=== PATIENT | female | born 1975 | race Caucasian/White ===

== ENCOUNTER 2016-08-04 13:29 | Emergency (ER) | payer OTHER ==
[2016-08-04] VITALS (9 sets, daily range): BP systolic 129–160; BP diastolic 52–111; PULSE 102–175; RESP 17–32; O2SAT 95–100
[~2016-08-04 13:29] MED LIST: ASPI-973 PO; AZEL137S11 NS; BENZ-12 PO; CYCL10TA9 PO; DIVA500T14 PO; EPIN0.3P2 IJ; ERGO500050 PO; FLUT9.9S NS; GABA-500 PO; HYDR25CA PO; IMI100 PO; KLO5T PO; LANS30CA PO; LEVA15HF5 IH; LEVO750T9 PO; LEVO75TA4 PO; MAGN250T29 PO; MOME13HF IH; MONT10TA23 PO; PROC10TA PO; PYRI200T5 PO; UBID300C PO; VERA120T84 PO; VERA40TA2 PO
[2016-08-04] MEDS ORDERED: MethylprednisoLONE Sodium Succinate 62.5 mg/mL 2 mL Inj IVPUSH ONE (13:35)
[2016-08-04] MEDS ORDERED: Albuterol 2.5 mg/3 mL Inhalation Solution NEB ONE (13:35)
--- NOTE | 2016-08-04 13:36 | ED.REPORT ---
HPI-Allergic Reaction Date of Service Aug 04, 2016 ED Provider: Car Ceja MD This is a 41 year old female with a history of anaphylaxis and allergic asthma presenting to the emergency department complaining of difficulty breathing that began just prior to arrival. Patient used her friend's lotion and then developed shortness of breath. SOB is progressively worsening and is associated with throat swelling and diffuse erythema. Nursing Notes Stated Complaint: TROUBLE BREATHING Nursing Notes Reviewed: Yes Allergies: Coded Allergies: Penicillins (Verified Allergy, Severe, Anaphylaxis, 12/08/15) amoxicillin (Verified Allergy, Severe, Anaphylaxis, 12/08/15) avocado (Verified Allergy, Severe, mouth swellls, hives on roof of mouth, 12/08/15) banana (Verified Allergy, Severe, hives, mouth swells, 12/08/15) clarithromycin (Verified Allergy, Severe, 12/08/15) diphenhydramine HCl (Verified Allergy, Severe, AV HEART BLOCK, 12/08/15) erythromycin ethylsuccinate (Verified Allergy, Severe, hives, SOB, throat swelling, 12/08/15) influenza virus vaccine, specific (Verified Allergy, Severe, supraventicular tachycardia, rash, throat swelling, 12/08/15) chest pressure iodine (Verified Allergy, Severe, Anaphylaxis, 12/08/15) topical-rash. dye-anaphylaxis latex (Verified Allergy, Severe, 12/08/15) morphine (Verified Allergy, Severe, 12/08/15) severe vomitting, hallucinations ondansetron (Verified Allergy, Severe, 12/08/15) shellfish derived (Verified Allergy, Severe, Anaphylaxis, 12/08/15) [place] (Verified Allergy, Intermediate, Hives, mouth swells, 12/08/15) Roof of mouth breaks out. Kiwi (Unverified Allergy, Unknown, 12/08/15) rash and tongue swelling Miguel (Verified Allergy, Unknown, mouth swells, 12/08/15) Scheduled Aspirin (Aspirin) 81 Mg Tablet 162 MG PO HS Azelastine HCl (Azelastine HCl) 137 Mcg/0.137 Ml [place].pump 137 MCG NS DAILY Divalproex ER (Divalproex ER) 500 Mg Tab.er.24h 500 MG PO HS *DAILY DOSING ONLY* Swallowed whole without chewing to avoid local irritation of the mouth and throat. Ergocalciferol (Vitamin D2) (Drisdol) 50,000 Unit Capsule 100,000 UNIT PO Q7D Fluticasone Propionate (Flonase Allergy Relief) 50 Mcg/Actuation [place].susp 1 SPRAY NS DAILY Lansoprazole (Lansoprazole) 30 Mg Capsule.dr 30 MG PO BID Levofloxacin (Levaquin) 750 Mg Tablet 750 MG PO DAILYAC Levothyroxine (Levothyroxine) 75 Mcg Tablet 75 MCG PO DAILY Magnesium Oxide (Magnesium) 250 Mg Tablet 250 MG PO DAILY Mometasone/Formoterol (Dulera 200 Mcg/5 Mcg Inhaler) 13 Gm Hfa.aer.ad 2 PUFFS IH BID Montelukast (Montelukast) 10 Mg Tablet 10 MG PO DAILY Pyridoxine (Vitamin B-6) 200 Mg Tablet 300 MG PO DAILY Ubidecarenone (Co Q-10) 300 Mg Capsule 600 MG PO DAILY Verapamil (Verapamil) 40 Mg Tablet 20 MG PO DAILY Verapamil ER (Verapamil ER) 120 Mg Tablet.er 120 MG PO DAILY Scheduled PRN Benzonatate (Tessalon Perle) 100 Mg Capsule 200 MG PO TID PRN PRN For Cough Clonazepam (Clonazepam) 0.5 Mg Tablet 0.25 MG PO . PRN PRN For Shortness of Breath Cyclobenzaprine (Cyclobenzaprine) 10 Mg Tablet 10 MG PO TID PRN PRN Spasm Epinephrine (Epipen 2-Cody) 0.3 Mg/0.3 Ml Auto.injct 0.3 MG IJ PRN PRN PRN For Anaphyllaxis Gabapentin (Gabapentin) 100 Mg Capsule 100-300 MG PO Evening PRN PRN nerve pain Hydroxyzine Pamoate (Vistaril) 25 Mg Capsule 25 MG PO Q4-6H PRN PRN allergies Levalbuterol Tartrate (Xopenex Hfa) 15 Gm Hfa.aer.ad 2 PUFF IH Q8H PRN PRN For Shortness of Breath Prochlorperazine Maleate (Prochlorperazine) 10 Mg Tablet 10 MG PO Q8 PRN PRN For Nausea/Vomiting Sumatriptan (Imitrex) 100 Mg Tablet 100 MG PO DAILY PRN PRN migraine May take 50mg 6 hours after initial dose if not effective. General Time Seen by MD: 13:35 Chief Complaint Difficulty breathing Hx Obtained From: Patient Arrived By: Walk-in Onset Occurred: Just prior to arrival Symptom Duration: Since onset Severity: Current: No pain currently Pertinent Negative: Pt denies other symptoms Recent Healthcare: No recent doctor visit, No recent hospitalization Similar Sx Previous: No Past Medical History Past Medical History Asthma, severe allergic (usez Xopenex) Hypothyroidism. Thyroid and parathyroid adenoma. 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 Migraine headaches. GERD. History of SVT. History of anaphylaxis from flu shot. Anxiety Past Surgical History Thyroid surgery Arm surgery right oophrectomy (2008) Reports: Appendectomy, Cholecystectomy, Hysterectomy, Tonsillectomy Reports: Carpal tunnel Family History father-[place] Smoking History Never Smoker Social History Drug Use: Denies drug use Other Social History: Good social support, Local resident Occupation Works at [employer] Ambulatory Status Independent Review of Systems Constitutional: Denies: Chills, Fever Ears / Nose / Throat: Reports: Throat swelling, Voice change Respiratory: Reports: Shortness of breath, Denies: Non-productive cough Allergy / Immune: Reports: Allergic reaction Complete sys rev & neg: except as marked. Physical Exam Initial Vital Signs Vital Signs (First) Date Time Temp Pulse Resp B/P Pulse Ox O2 Delivery O2 Flow Rate FiO2 08/04/16 13:35 36.6 175 32 154/111 100 Room Air - Initial VS: Reviewed Head / Eyes: Atraumatic, Normocephalic, PERRL Neck: Supple, Non-tender, Full range of motion Abdomen / GI: Soft, Non-tender, No guarding, No rebound, No distention Extremities: Vascular intact, Neuro intact, No swelling, No tenderness Neurologic: Alert, Oriented, Nonfocal Psychiatric: Mood/affect normal, Behavior normal, Normal thought content General/Constitutional: Awake, Alert Respiratory / Chest: No wheezing Labored breathing Cardiovascular: No murmurs, No rubs Heart Rate / Rhythm: Positive: Tachycardia Color / Condition: Positive: Erythema generalized ENT: Mucous membranes moist Interpretation & Diagnostics Lab Results Interpretation Test 08/04/16 13:45 Hold Purple Top Tube Received (Received) Hold [place] Top Tube Received (Received) Re-Eval/Medical Decision Med Decision/Clinical Course 41-year-old female long list of allergies presenting with anaphylactic reaction after being exposed to a coworker's lotion. She was given epinephrine and Solu-Medrol and her symptoms resolved. She was observed for 4 hours and remained asymptomatic. She was discharged home. She has an EpiPen. Re-Evaluation/Progress #1: Time of Eval: 14:24 Patient Status: Condition worsened Re-Evaluation/Progress Note: HR 180s Re-Evaluation/Progress #2: Time of Eval: 17:38 Re-Evaluation/Progress Note: All vital signs normal, pt feels well and would like to go home. Plan for discharge, pt understands and agrees with plan, all questions addressed. Counseled Regarding: Diagnosis, Lab results, Need for follow-up, When/why to return to ED Discharge & Departure Primary Impression: Anaphylaxis Encounter type: initial encounter Qualified Code: T78.2XXA - Anaphylactic shock, unspecified, initial encounter Additional Impression: Allergic reaction Encounter type: initial encounter Qualified Code: T78.40XA - Allergy, unspecified, initial encounter Disposition: Home Discharge Condition All VS Reviewed: Yes Condition: Stable Patient Instructions: Anaphylaxis (DC) Additional Instructions: Thank you for seeking care in the emergency department today. Avoid using the product you used today that caused your allergic reaction. Follow-up with your primary care provider. Return to the emergency department for any new or worsening symptoms Referrals: Rosina German (PCP) Crit Care Except Billable Proc Time Spent: 30-74 minutes Services Performed: Patient management by me, Time spent at bedside, Reviewing test results, Discussing patient care, Documentation in record Scribe Attestation Portions of this note were transcribed by Juan Braun. I, Dr. Ceja personally performed the history, physical exam and medical decision-making; I reviewed and confirmed the accuracy of the information in the transcribed note. Signed by: candelaria Soto. 08/04/2016, 18:00. Car Ceja MD Aug 04, 2016 13:36 JUAN BRAUN Aug 04, 2016 13:43
[2016-08-04] MEDS ORDERED: Albuterol 0.5% (5mg/mL) 20 mL Inhalation Solution ONE (13:37)
[2016-08-04] MEDS ORDERED: Levalbuterol 1.25 mg/0.5mL Inhalation Solution NEB ONE ×2 (13:40→14:25)
[2016-08-04] MEDS ORDERED: Levalbuterol 1.25 mg/0.5mL Inhalation Solution ONE (13:41)
[2016-08-04] MEDS ORDERED: 0.9% Sodium Chloride 1,000 ML IV ONE (13:45)
[2016-08-04] MEDS ORDERED: Famotidine Inj 20 MG in IV Premix 1 EACH IV ONE (13:55)
[2016-08-04] MEDS ORDERED: Epinephrine Racemic 2.25% 0.5 mL Inhalation Solution NEB ONE (14:15)
[2016-08-04] MEDS ORDERED: MetoCLOpramide 5 mg/mL 2 mL Inj IVPUSH ONE (14:15)
== END 2016-08-04 18:13 | disposition home or self-care (01) ==
LOC: SED 13:29
DX: T49.91XA Poisoning by unspecified topical agent, accidental (unintentional), initial encounter (principal); Y93.89 Activity, other specified; Y92.89 Other specified places as the place of occurrence of the external cause; Y99.8 Other external cause status; J45.909 Unspecified asthma, uncomplicated; E03.9 Hypothyroidism, unspecified; K21.9 Gastro-esophageal reflux disease without esophagitis; Z79.82 Long term (current) use of aspirin; Z88.0 Allergy status to penicillin; Z88.1 Allergy status to other antibiotic agents; Z88.5 Allergy status to narcotic agent; Z88.7 Allergy status to serum and vaccine; Z88.8 Allergy status to other drugs, medicaments and biological substances; Z91.013 Allergy to seafood; Z91.018 Allergy to other foods; Z91.040 Latex allergy status
CPT/HCPCS: 94664; 96361; 96372; 96374; 96375; 99291; J0171; J2765; J2930; J3490; J7030; J7614

== ENCOUNTER 2017-01-25 11:09 | Inpatient (IN) | payer OTHER ==
[2017-01-25] VITALS (15 sets, daily range): BP systolic 138–197; BP diastolic 59–125; PULSE 110–151; RESP 19–36; O2SAT 94–100
[~2017-01-25] VITALS: Ht 161.3 cm; Wt 96.4 kg
[~2017-01-25 11:09] MED LIST changes: -EPIN0.3P2 IJ; +EPIN0.3P2 IM
--- NOTE | 2017-01-25 11:20 | ED.REPORT ---
HPI-General Illness Date of Service Jan 25, 2017 ED Provider: Pieter Perez Patient is a 44 year old female with a hx asthma who presents to the ED for progress worse dyspnea over past day which she first noticed yesterday. Yesterday she took an inhaler with some relief. This morning upon waking she noticed rafy on her car from smoke in the air coinciding with progressively worsening SOB that is now severe. She used her inhaler with no relief. She describes her symptoms to be like previous asthma exacerbations but worse. She denies chest pain, headache, fever, chills, rash, itching, abdominal pain, back pain, throat swelling, hematuria, or any other symptoms. Nursing Notes Stated Complaint: HARD TIME BREATHING Chief Complaint: Respiratory Distress Nursing Notes Reviewed: Yes Allergies: Coded Allergies: Penicillins (Verified Allergy, Severe, Anaphylaxis, 12/08/15) amoxicillin (Verified Allergy, Severe, Anaphylaxis, 12/08/15) avocado (Verified Allergy, Severe, mouth swellls, hives on roof of mouth, 12/08/15) banana (Verified Allergy, Severe, hives, mouth swells, 12/08/15) clarithromycin (Verified Allergy, Severe, FULL BODY RASH, 01/25/17) diphenhydramine HCl (Verified Allergy, Severe, AV HEART BLOCK, 12/08/15) erythromycin ethylsuccinate (Verified Allergy, Severe, hives, SOB, throat swelling, 12/08/15) influenza virus vaccine, specific (Verified Allergy, Severe, supraventicular tachycardia, rash, throat swelling, 12/08/15) chest pressure iodine (Verified Allergy, Severe, Anaphylaxis, 12/08/15) topical-rash. dye-anaphylaxis latex (Verified Allergy, Severe, RAISED RASH, [place]EL[place], [place], 01/25/17) shellfish derived (Verified Allergy, Severe, Anaphylaxis, 12/08/15) [place] (Verified Allergy, Intermediate, Hives, mouth swells, 12/08/15) Roof of mouth breaks out. Kiwi (Unverified Allergy, Unknown, 12/08/15) rash and tongue swelling Miguel (Verified Allergy, Unknown, mouth swells, 12/08/15) morphine (Verified Adverse Reaction, Severe, Nausea,Vomiting, 01/25/17) VIOLENTLY VOMITING INSTANT OF ADMINISTRATION ondansetron (Verified Adverse Reaction, Severe, INTENSE HEADACHE, 01/25/17) ciprofloxacin (Verified Adverse Reaction, Intermediate, CRUSHING CHEST PAIN, 15 YRS AGO, 01/25/17) PATIENT CAN TAKE LEVOFLOXACIN Scheduled Aspirin (Aspirin) 81 Mg Tablet 162 MG PO HS Azelastine HCl (Azelastine HCl) 137 Mcg/0.137 Ml [place].pump 137 MCG NS DAILY Divalproex ER (Divalproex ER) 500 Mg Tab.er.24h 500 MG PO HS *DAILY DOSING ONLY* Swallowed whole without chewing to avoid local irritation of the mouth and throat. Ergocalciferol (Vitamin D2) (Drisdol) 50,000 Unit Capsule 100,000 UNIT PO Q7D Fluticasone Propionate (Flonase Allergy Relief) 50 Mcg/Actuation [place].susp 1 SPRAY NS DAILY Lansoprazole (Lansoprazole) 30 Mg Capsule.dr 30 MG PO QAM Levalbuterol HCl (Xopenex) 1.25 Mg/3 Ml Vial.neb 1.25 MG IH TID Levalbuterol Tartrate (Xopenex Hfa) 15 Gm Hfa.aer.ad 2 PUFF IH BID Levofloxacin (Levaquin) 750 Mg Tablet 750 MG PO DAILYAC Levothyroxine (Levothyroxine) 88 Mcg Tablet 44 MCG PO QAM Magnesium Oxide (Magnesium) 250 Mg Tablet 250 MG PO DAILY Mometasone/Formoterol (Dulera 200 Mcg/5 Mcg Inhaler) 13 Gm Hfa.aer.ad 2 PUFFS IH BID Montelukast (Montelukast) 10 Mg Tablet 10 MG PO DAILY Pyridoxine (Vitamin B-6) 200 Mg Tablet 300 MG PO DAILY Ubidecarenone (Co Q-10) 300 Mg Capsule 600 MG PO DAILY Verapamil ER (Verapamil ER) 120 Mg Tablet.er 120 MG PO DAILY Scheduled PRN Benzonatate (Tessalon Perle) 100 Mg Capsule 200 MG PO TID PRN PRN For Cough Clonazepam (Clonazepam) 0.5 Mg Tablet 0.25 MG PO . PRN PRN For Shortness of Breath Cyclobenzaprine (Cyclobenzaprine) 10 Mg Tablet 10 MG PO TID PRN PRN Spasm Epinephrine (Epipen 2-Cody) 0.3 Mg/0.3 Ml Auto.injct 0.3 MG IJ PRN PRN PRN For Anaphyllaxis Gabapentin (Gabapentin) 100 Mg Capsule 100-300 MG PO Evening PRN PRN nerve pain Hydroxyzine Pamoate (Vistaril) 25 Mg Capsule 25-50 MG PO Q6H PRN PRN allergies Prednisone (PredniSONE) 5 Mg Tab 5 MG PO ASDIRECTED PRN PRN MIGRAINE Prochlorperazine Maleate (Prochlorperazine) 10 Mg Tablet 10 MG PO Q8 PRN PRN For Nausea/Vomiting Sumatriptan (Imitrex) 100 Mg Tablet 100 MG PO DAILY PRN PRN migraine May take 50mg 6 hours after initial dose if not effective. Sumatriptan Succinate (Sumatriptan Succinate) 6 Mg/0.5 Ml Vial 6 MG SQ ASDIRECTED PRN PRN MIGRAINE Valacyclovir HCl (Valtrex) 500 Mg Tablet 2,000 MG PO ASDIRECTED PRN PRN herpes outbreak General Time Seen by MD: 11:18 Chief Complaint Breathing problem Hx Obtained From: Patient Arrived By: Walk-in Sudden in Onset?: No Onset Occurred: Yesterday Symptom Duration: Since onset Severity: Current: No pain currently Severity: Maximum: No pain Pertinent Negative: Pt denies other symptoms Context Related History: Reports Asthma Similar Sx Previous: Yes Past Medical History Past Medical History Asthma, severe allergic (usez Xopenex) Hypothyroidism. Thyroid and parathyroid adenoma. 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 Migraine headaches. GERD. History of SVT. History of anaphylaxis from flu shot. Anxiety HTN CVA hiatal hernia Arthritis Past Surgical History Thyroid surgery Arm surgery right oophrectomy (2009) ulnar nerve transposition foot surg Reports: Appendectomy, Cholecystectomy, Hysterectomy, Tonsillectomy Reports: Carpal tunnel Family History father-MD Smoking History Never Smoker Social History Drug Use: Denies drug use Other Social History: Good social support, Local resident Occupation Works at [employer] Ambulatory Status Independent Review of Systems Full Review of Systems Constitutional: Denies: Chills, Fever Ears / Nose / Throat: Denies: Throat swelling Respiratory: Reports: Shortness of breath Cardiovascular: Denies: Chest pain GI: Denies: Abdominal pain Female: Denies: Hematuria Musculoskeletal: Denies: Back pain Skin: Denies Rash Allergy / Immune: Denies: Itching Neurologic: Denies: Headache Complete sys rev & neg: except as marked. Physical Exam Nursing note and vitals reviewed. Constitutional: Well-developed, well-nourished. Uncomfortable appearing. Head: Normocephalic and atraumatic. Mouth/Throat: Oropharynx is clear and moist. No oropharyngeal exudate. Eyes: EOM are normal. Pupils are equal, round, and reactive to light. Neck: Supple, no tracheal deviation. Cardiovascular: Tachycardic, regular rhythm. Equal and intact distal pulses throughout. Pulmonary/Chest: Moderately increased work of breathing. Expiratory wheezes throughout. Tachypneic. Abdominal: Soft. No distension. There is no tenderness, rebound, or guarding. Bowel sounds present. Musculoskeletal: Range of motion grossly intact, moving all extremities. No edema or tenderness appreciated. Neurological: AOx3. Grossly nonfocal exam. Strength and sensation intact and equal to bilateral upper and lower extremities. Skin: Warm and moist, no rashes or pallor appreciated. Psychiatric: Appropriate mood and affect. Behavior appears normal. Vital Signs Vital Signs Date Time Temp Pulse Resp B/P Pulse Ox O2 Delivery O2 Flow Rate FiO2 01/25/17 16:09 126 26 98 Room Air 01/25/17 15:53 123 19 150/84 99 Room Air 01/25/17 15:23 125 23 138/59 95 Room Air 01/25/17 14:54 36.3 01/25/17 14:30 118 22 148/73 94 01/25/17 13:30 121 21 96 01/25/17 12:41 123 24 98 Room Air 21 01/25/17 12:26 142 32 97 Room Air 01/25/17 11:33 151 36 98 Room Air 01/25/17 11:30 140 33 163/117 99 01/25/17 11:16 140 36 197/125 100 Room Air Initial VS: Reviewed Interpretation & Diagnostics Lab Results Interpretation Result Diagram: 01/25/17 1315 01/25/17 1315 Test 01/25/17 13:10 01/25/17 13:15 01/25/17 14:23 Lactic Acid Level 3.4mmol/L (0.4-2.0) White Blood Count 16.3th/mm3 (3.8-10.1) Red Blood Count 4.79mil/mm3 (3.90-5.20) Hemoglobin 14.7g/dL (12.0-15.6) Hematocrit 41.9% (35.0-46.0) Mean Corpuscular Volume 87.5fL (81-100) Mean Corpuscular Hemoglobin 30.7pg (27.0-35.0) Mean Corpuscular Hemoglobin Concent 35.1% (32.0-37.0) Red Cell Distribution Width 12.6% (12.3-15.4) Platelet Count 204bil/L (150-400) Neutrophils (%) (Auto) 90.1% (40-74) Lymphocytes (%) (Auto) 7.5% (14-46) Monocytes (%) (Auto) 1.8% (4-12) Eosinophils (%) (Auto) 0.1% (0-5) Basophils (%) (Auto) 0.1% (0-3) Prothrombin Time 10.0sec (8.1-12.5) Prothromb Time International Ratio 0.94ratio Sodium Level 139mEq/L (134-144) Potassium Level 3.4mEq/L (3.5-5.2) Chloride Level 103mEq/L (97-108) Carbon Dioxide Level 17mmol/L (18-29) Blood Urea Nitrogen 9mg/dL (6-24) Creatinine 0.67mg/dL (0.57-1.00) Estimat Glomerular Filtration Rate 138mL/min (>59) Glucose Level 129mg/dL (60-99) Calcium Level 8.9mg/dL (8.5-10.1) Magnesium Level 1.7mg/dL (1.6-2.6) Total Bilirubin 0.4mg/dL (0.0-1.2) Aspartate Amino Transf (AST/SGOT) 30U/L (0-50) Alanine Aminotransferase (ALT/SGPT) 29U/L (0-32) Alkaline Phosphatase 94U/L (25-150) Troponin T < 0.010ug/L (0.0-0.011) Pro-B-Type Natriuretic Peptide 89.15pg/mL (0-130) Total Protein 7.5g/dL (6.4-8.4) Albumin 4.0g/dL (3.4-5.0) Procalcitonin 0.05ng/mL (0.00-0.08) Urine Color Straw (YELLOW) Urine Appearance Clear (CLEAR,HAZY) Urine pH 6.5 (5.0-8.0) Urine Specific [place] 1.006 (1.003-1.035) Urine Protein Negativemg/dL (NEG,TRACE) Urine Glucose (UA) Negativemg/dL (NEGATIVE) Urine Ketones 15mg/dL (NEGATIVE) Urine Occult Blood Negative (NEGATIVE) Urine Nitrite Negative (NEGATIVE) Urine Bilirubin Negative (NEGATIVE) Urine Urobilinogen Normalmg/dL (NORMAL) Urine Leukocyte Esterase Negative (NEGATIVE) Urine RBC 0-2/hpf (0-2) Urine WBC 0-5/hpf (0-5) Urine Epithelial Cells Occasional/hpf (NONE-MOD) Urine Crystals None seen (NONE SEEN) Urine Bacteria None/hpf (NONE-FEW) Urine Hyaline Casts None/lpf (NONE) Urine Granular Casts None seen (NONE SEEN) Urine Waxy Casts None seen (NONE SEEN) Urine Red Blood Cell Casts None seen (NONE SEEN) Urine White Blood Cell Casts None seen (NONE SEEN) Urine Mucus None seen (None Seen) Urine Trichomonas None seen (NONE SEEN) Urine Yeast None (NONE SEEN) Urinalysis Comment None Urine Culture Reflexed Not indicated ECG Interpretation ECG Interpretation: Sinus tachycardia rate 113 Time: 13:00 Interpreted by: ED physician X-Ray Chest Interpretation Chest Xray Interpretation: IMPRESSION: Negative chest. No acute cardiopulmonary process is evident. Dictated by: Emmett Olson M.D. on 01/25/2017 at 11:09 Approved by: Emmett Olson M.D. on 01/25/2017 at 11:10 View: Portable, 1 view Interpretation / Wet Read by: Interpret - Radiologist Re-Eval/Medical Decision Med Decision/Clinical Course In summary, 42-year-old female with a history of reactive airway disease presenting to the ED for evaluation of progressively worsening dyspnea over the past day. Differential is broad and includes ACS, acute exacerbation of underlying reactive airway disease, pneumonia, pneumothorax, COPD, etc. This feels similar to previous exacerbations of her reactive airway disease. EKG demonstrated sinus tachycardia with no acute ischemic changes. Troponin negative. Chest x-ray negative for pneumonia or other acute abnormalities. Laboratory studies reviewed, notable for a white blood cell count of 16.3, lactic acid of 3.4, BNP within normal limits. UA not consistent with infection. Patient received racemic epinephrine, and 3 duo nebs with only minimal improvement in symptoms. She has not required intubation for this in the past, but states she has come "close". Upon reassessment, despite the above interventions, patient continuing to have significant difficulty breathing with increased work of breathing and respiratory rate. Given the above, plan admission for further management and evaluation. I discussed the plan with the patient and her family, as well as the hospitalist Dr. Smith, who accepted the patient for further management and evaluation. Patient agreeable to the plan as stated, no further questions. Source of Hx: Old records, Family Time of Eval: 15:28 Re-Evaluation/Progress Note: Rechecked pt. Discussed plan for admit. Patient understands and agrees with plan. All questions addressed at this time. Counseled Regarding: Diagnosis, Lab results, Need for admission Discharge & Departure Primary Impression: Reactive airway disease with acute exacerbation Additional Impression: Dyspnea Dyspnea type: unspecified Qualified Code: R06.00 - Dyspnea, unspecified Disposition: ADMITTED TO HOSPITAL Discharge Condition All VS Reviewed: Yes Condition: Stable Referrals: Rosina German (PCP) Crit Care Except Billable Proc Time Spent: 30-74 minutes Services Performed: Patient management by me, Time spent at bedside, Reviewing test results, Reviewing imaging, Discussing patient care, Documentation in record Critical Care Notes: See MDM. 40 min of critical care time was spent in the management of this patient. Scribe Attestation Portions of this note were transcribed by Jessica Argueta. I, Dr. Perez personally performed the history, physical exam and medical decision-making; I reviewed and confirmed the accuracy of the information in the transcribed note. Signed by: Khoa Eaton, 01/25/17 copies to: Rosina German William B MD Jan 25, 2017 11:20 JESSICA ARGUETA Jan 25, 2017 11:27
[2017-01-25] MEDS ORDERED: Epinephrine Racemic 2.25% 0.5 mL Inhalation Solution NEB ONE ×2 (11:25→11:30)
[2017-01-25] MEDS ORDERED: 0.9% Sodium Chloride Inhalation Solution ONE (11:25)
[2017-01-25] MEDS ORDERED: Dexamethasone 10 mg/mL Inj IVPUSH ONE (11:25)
[2017-01-25] MEDS ORDERED: Albuterol-Ipratropium 3 mL Inhalation Solution NEB ONE ×3 (11:25→15:40)
[2017-01-25] MEDS ORDERED: Albuterol-Ipratropium 3 mL Inhalation Solution ONE (11:26)
--- NOTE | 2017-01-25 12:11 | DRSVH ---
PROCEDURE: X-RAY CHEST ONE VIEW, PORTABLE ([id number]) INDICATIONS: dyspnea TECHNIQUE: One view of the chest was acquired. COMPARISON: [facility], CR, XR CHEST 2VW, 05/20/2016, 14:40. FINDINGS: Surgical changes and devices: None. Lungs and pleura: No pleural effusions or pneumothorax. Lungs are clear. Mediastinum: Mediastinal contours appear normal. Heart size is normal. Bones and chest wall: No suspicious bony lesions. Overlying soft tissues appear unremarkable. IMPRESSION: Negative chest. No acute cardiopulmonary process is evident. Dictated by: Emmett Olson M.D. on 01/25/2017 at 11:09 Approved by: Emmett Olson M.D. on 01/25/2017 at 11:10
[2017-01-25 13:28] LABS: BASOPHILS % (AUTO) 0.1 % (0-3); EOSINOPHILS % (AUTO) 0.1 % (0-5); MONOCYTES % (AUTO) 1.8 % (4-12); Mean Corpuscular Hemoglobin 30.7 pg (27.0-35.0); Mean Corpuscular Volume 87.5 fL (81-100); NEUTROPHILS % (AUTO) 90.1 % (40-74); Platelet Count 204 bil/L (150-400)
[2017-01-25 13:51] LABS: TROPONIN T < 0.010 ug/L (0.0-0.011)
[2017-01-25 14:01] LABS: Magnesium 1.7 mg/dL (1.6-2.6)
[2017-01-25 15:05] LABS: APPEARANCE,URINE CLEAR (CLEAR,HAZY); COLOR,URINE STRAW (YELLOW); PH,URINE 6.5 (5.0-8.0)
[2017-01-25 15:06] LABS: OCCULT BLOOD,URINE NEGATIVE (NEGATIVE); UROBILINOGEN,URINE NORMAL (NORMAL)
[2017-01-25 15:09] LABS: INR 0.94 ratio
[2017-01-25] MEDS ORDERED: VALA500T2 PO (15:57)
[2017-01-25] MEDS ORDERED: LEVO88TA4 PO (16:00)
[2017-01-25] MEDS ORDERED: SUMA6VIA18 SQ (16:00)
[2017-01-25] MEDS ORDERED: PRD5T PO (16:02)
[2017-01-25] MEDS ORDERED: LEVA1.253 IH (16:02)
[2017-01-25] MEDS ORDERED: VERA40TA2 PO (16:46)
[2017-01-25] MEDS ORDERED: [UNRECOGNIZED DRUG - CODE] PO (16:46)
[2017-01-25] MEDS ORDERED: [UNRECOGNIZED DRUG - CODE] PO (16:46)
[2017-01-25] MEDS ORDERED: CHOL500050 PO (16:47)
[2017-01-25] MEDS ORDERED: AMIT10TA6 PO (16:48)
[2017-01-25] MEDS ORDERED: Polyethylene Glycol (PEG) 17 Gm Powder PO PRN ×2 (17:10)
[2017-01-25] MEDS ORDERED: Alum-Mag Hydrox-Simeth 30 mL Suspension PO PRN ×2 (17:10)
[2017-01-25] MEDS ORDERED: Magnesium Sulf 2 Gm/50mL Water 2 GM in IV Premix 1 EACH IV ONE (17:10)
[2017-01-25] MEDS ORDERED: Ondansetron 2 mg/mL 2 mL Inj IVPUSH PRN ×2 (17:10)
[2017-01-25] MEDS ORDERED: Glucose 40% Oral Gel 15 Gm Tube PO PRN (17:35)
[2017-01-25] MEDS ORDERED: Albuterol 2.5 mg/3 mL Inhalation Solution NEB PRN (17:35)
[2017-01-25] MEDS: Insulin LISPRO 300 Unit/3 mL Inj SUBQ SCH ×2 (17:37→20:58)
[2017-01-25] MEDS ORDERED: Dextrose 10% 250 ML IV PRN (17:40)
--- NOTE | 2017-01-25 18:22 | ABG ---
DateTimeAnalyzed 18:12:00 -_ pH ____7.437 - pCO2 ___26.9__ -mmHg pO2 ___85.5__ -mmHg HCO3- ___17.8__ -mmol/L ABE ___-4.4__ -mmol/L tHb ___15.1__ -g/dL O2Hb ___94.4__ -% COHb ____1.6__ -% MetHb ____1.0__ -% sO2 ___96.9__ -% FIO2 ___40.0__ -% Drawn By lab - Date/Time Notified____ 18:21:00 -_ Liter_Flow ____6.0__ -L/min Oxygen Device 1 neb - Notified By lw - Notified Whom ___Dr. Kubisty - B 754 -mmHg tO2 ___20.1__ -Vol% Dexter test N/A -
[2017-01-25] MEDS ORDERED: NORT10SO PO (18:25)
[2017-01-25] MEDS: 0.9% Sodium Chloride 1,000 ML IV SCH (18:38)
--- NOTE | 2017-01-25 18:44 | NUR ---
Admission Patient arrived to floor from ED at approx 1730 with spouse and daughter at bedside. Oriented patient to room and hospital policies. MD at bedside when brought to floor. Continues to wear O2 at 2LPM for comfort. RT at bedside. Confirmed med rec with patient. At 1845 lactic acid came back at 5.1. MD notified. Verbal orders to increase NS to 150ml/hr x 2 hours. Patient informed of plan of care. Lungs clear posterior yet do hear wheezing in upper lobes anterior. Continue frequent rounding.
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
[2017-01-25] MEDS ORDERED: Azelastine HCl 137 MCG NASAL PRN (18:55)
[2017-01-25] MEDS ORDERED: Albuterol-Ipratropium 3 mL Inhalation Solution NEB SCH (20:30)
[2017-01-25] MEDS: MethylprednisoLONE Sodium Succinate 62.5 mg/mL 2 mL Inj IVPUSH SCH (20:39)
[2017-01-25] MEDS: Levalbuterol 1.25 mg/0.5mL Inhalation Solution NEB PRN (23:52)
[2017-01-26] VITALS (11 sets, daily range): BP systolic 147–168; BP diastolic 78–97; PULSE 107–126; RESP 16–22; O2SAT 96–99
[2017-01-26] MEDS: 0.9% Sodium Chloride 1,000 ML IV SCH ×3 (02:36→18:11)
[2017-01-26] MEDS: MethylprednisoLONE Sodium Succinate 62.5 mg/mL 2 mL Inj IVPUSH SCH ×3 (02:38→16:31)
--- NOTE | 2017-01-26 02:56 | NUR ---
Respiratory Patient c/o SOB and had some tightness and wheezing noted. RT called for neb treatment. Patient reports relief. Lactic acid continues to trend down into normal range. Reported some palpitations, tele consulted and reported patient tachy in 120s. Patient was anxious at this time and HR returned to 100. Patient appears to be resting comfortably at this time.
[2017-01-26] MEDS: Levalbuterol 1.25 mg/0.5mL Inhalation Solution NEB PRN ×4 (05:05→16:06)
[2017-01-26] MEDS: Pantoprazole 40 mg ER24 Tablet PO SCH (05:34)
[2017-01-26 06:48] LABS: BASOPHILS % (AUTO) 0.3 % (0-3); EOSINOPHILS % (AUTO) 4.9 % (0-5); Mean Corpuscular Hemoglobin 30.8 pg (27.0-35.0); Mean Corpuscular Volume 94.5 fL (81-100); NEUTROPHILS % (AUTO) 53.8 % (40-74); Platelet Count 132 bil/L (150-400)
[2017-01-26 07:52] LABS: Magnesium 1.8 mg/dL (1.6-2.6)
[2017-01-26] MEDS: Insulin LISPRO 300 Unit/3 mL Inj SUBQ SCH ×4 (08:00→22:00)
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
--- NOTE | 2017-01-26 15:24 | NUR ---
Cough/Tele/BG Pt has intermittent non-productive cough. Tessalon pearls admin. Frequent coughing causing 3/10 headache. PRN PO Tylenol admin. Will continue to monitor. Pt does get tremulous and tachycardic with breathing tx. HR has remained in the 110's today SR. Has been up to 150's with activity. Pt denies chest pain or SOB. 2L NC. Blood sugars due to Solu-Medrol administration.
--- NOTE | 2017-01-26 16:47 | NUR ---
Social Work Note: screening/multidisciplinary rounds: Data:EMR Reviewed. Pt is a 40 y/o female who was admitted on 01/25/17 for reactive airway per H&P. Pt's insurance is [employer] and PCP is Nadia Garcia Do .EMR reviewed. Pt resides at home with her where she remains independent with ADLS. Pt works at baseline. Pt has been up in her room independent. No concerns noted around pt's capacity for self care from RN or MD. No anticipated discharge needs. SW will continue to follow if needs arise. Assessment:Pt who is independent at baseline. Plan:Pt to discharge home with support of family when medically stable. No anticipated discharge needs. SW will continue to follow if needs arise. CHARLES Song
[2017-01-27] VITALS (12 sets, daily range): BP systolic 138–164; BP diastolic 73–104; PULSE 80–120; RESP 16–28; O2SAT 95–99
[2017-01-27] MEDS: Levalbuterol 1.25 mg/0.5mL Inhalation Solution NEB PRN ×4 (00:34→11:36)
[2017-01-27] MEDS: MethylprednisoLONE Sodium Succinate 62.5 mg/mL 2 mL Inj IVPUSH SCH ×3 (00:43→15:48)
[2017-01-27] MEDS: 0.9% Sodium Chloride 1,000 ML IV SCH ×2 (02:56→10:30)
[2017-01-27] MEDS: Pantoprazole 40 mg ER24 Tablet PO SCH (06:33)
[2017-01-27] MEDS: Insulin LISPRO 300 Unit/3 mL Inj SUBQ SCH ×4 (08:00→22:00)
[2017-01-27] MEDS ORDERED: Furosemide 10 mg/mL 2 mL Inj IVPUSH ONE (10:00)
--- NOTE | 2017-01-27 10:24 | NUR ---
Neb treatment patient's spouse notified this RN r/t FISCAL ECONOMIST wearing perfume that has caused trouble breathing and patient would like neb treatment. visual display manager aware. patient received neb treatment with some relief. per RT will be back for another neb treatment. BP 182/96, pulse 123, Oxygen 2L 98%, per design technician Heart rate 140-150. After neb treatment Tele per design technician [id number]. Notified Dr. Madden, new orders for IV Lasix. continue to monitor.
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
--- NOTE | 2017-01-27 16:12 | NUR ---
Mentation patient is alert and oriented X3. Able to make needs known. No sign and symptoms of acute respiratory/cardiac distress noted. BP 153/84, pulse 112, Temp 37.0, RR16, Oxygen 1L NC 96%. Anti anxiety PRN IV medication as ordered for increased anxiety before lunch with effective improvement. no futher sign and symptoms of anxiety noted. blood sugars 128 and 181 so far before meals. Insulin per sliding scale. Nasopharyngeal swab PCR sent as ordered to lab. Fluids at TKO per orders. per telemetry monitor tele SR 115. Call light with in reach for safety. Neb treatments effective for difficulty breathing per patient and has received 3X so far this shift. PRN PO cough medications as ordered for dry coughX1. continue to monitor.
--- NOTE | 2017-01-27 16:49 | NUR ---
Social Work: Initial Assessment Data: See initial assessment. Patient is a 42 year old female who was admitted on 01/25/17 for reactive airway disease & dyspnea per H&P. Patient's insurance is [facility] [place] and [facility]. Patient's PCP is Dr. Nadia Garcia DO. SW met with patient to discuss discharge planning. SW role explained. Patient states that she lives in [place] with her spouse. Patient considers her spouse to be her main source of support. Patient confirms that her spouse Po Mondragon is her DPOA and that AD have been completed and are on file with the hospital. Patient states that she is I at baseline with all ADLs and care needs. Patient denies having a hx of home health services or SNF. Patient denies having intermediate frame tender care insurance or VA benefits. Upon discharge, patient confirms that her spouse will transport her home. SW provided patient with a discharge planning checklist booklet and encouraged to call with any questions or concerns. Phone number provided. SW will continue to follow. Assessment: Patient will discharge home with spouse. Plan: Patient will discharge home with spouse when medically stable. Transportation will be provided by spouse. SW will continue to follow for needs. CHARLES Espinosa Addendum: 01/27/17 at 1704 by EUGENE JOHNSTON Amended: Links added.
--- NOTE | 2017-01-27 23:41 | NUR ---
Blood pressure/Headache Pt's blood pressure is elevated on routine checks. (160/100) Manually taken on right arm. Pt stated that she does have a MICHELLE rated at a 3. Given tylenol and cool washcloth. Will recheck BP in one hour.
[2017-01-28] VITALS (11 sets, daily range): BP systolic 158–171; BP diastolic 82–107; PULSE 65–106; RESP 16–22; O2SAT 94–98
[2017-01-28] MEDS: MethylprednisoLONE Sodium Succinate 62.5 mg/mL 2 mL Inj IVPUSH SCH ×3 (00:37→16:16)
[2017-01-28] MEDS ORDERED: Nitroglycerin 2% 1 Gm Ointment TOPICAL ONE (01:05)
--- NOTE | 2017-01-28 01:13 | NUR ---
Blood pressure MD notified of pt's elevated BP x 3 readings as well as mild MICHELLE. Pt denies migraine Nitro paste ordered x1. Will monitor for effectiveness
[2017-01-28] MEDS: Pantoprazole 40 mg ER24 Tablet PO SCH (06:17)
--- NOTE | 2017-01-28 06:56 | NUR ---
Blood pressure Blood pressure elevated at 167/107. Reported to . approved of verapamil 40mg given now rather than at 0830 Will cont to monitor
[2017-01-28] MEDS: Insulin LISPRO 300 Unit/3 mL Inj SUBQ SCH ×4 (08:00→21:18)
[2017-01-28] MEDS: Levalbuterol 1.25 mg/0.5mL Inhalation Solution NEB PRN ×2 (09:33→15:06)
[2017-01-28] MEDS: 0.9% Sodium Chloride 1,000 ML IV SCH (10:30)
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
[2017-01-28] MEDS ORDERED: hydrALAZINE 20 mg/mL Inj IV PRN (11:05)
--- NOTE | 2017-01-28 11:26 | NUR ---
verapamil In report, night nurse stated she gave pt verapamil aroun 0700 this morning for elevated BP after discussion with MD. Pt is A/Ox4 and confirms admin of med. Medication was still on eMAR to be given. I did not give dose so this was non-admin in chart but pt did receive medication.
[2017-01-28] MEDS ORDERED: Labetalol 5 mg/mL 20 mL Inj IVPUSH PRN (11:40)
[2017-01-29] VITALS (13 sets, daily range): BP systolic 160–181; BP diastolic 91–116; PULSE 77–115; RESP 16–20; O2SAT 94–99
[2017-01-29] MEDS: MethylprednisoLONE Sodium Succinate 62.5 mg/mL 2 mL Inj IVPUSH SCH ×4 (00:31→20:37)
[2017-01-29] MEDS: Levalbuterol 1.25 mg/0.5mL Inhalation Solution NEB PRN ×3 (00:35→20:28)
--- NOTE | 2017-01-29 01:00 | NUR ---
Headache Pt reports headache, not migrane, and given APAP with good result. BP monitored, no IV labetalol needed yet. Nitro paste strip removed from chest. IV infusing NS TKO at R AC. Tele SR/Sinus tach. 1L O2 per NC PRN for comfort- Pt requests PRN breathing treatment at midnight. Denies Chest pain. Care continues
[2017-01-29] MEDS: Pantoprazole 40 mg ER24 Tablet PO SCH ×2 (05:51→20:37)
[2017-01-29] MEDS: Insulin LISPRO 300 Unit/3 mL Inj SUBQ SCH ×4 (07:48→20:47)
--- NOTE | 2017-01-29 08:59 | NUR ---
Anxiety Pt called this RN into the room, very tearful, sitting on side of bed. [address] Pt said, detergent from staff member made her feel short of breath. This RN educated pt regarding pursed lip breathing, offered anti anxiety Rx, accepted and administered. Pt reports chest discomfort, is coughing but is feeling a bit more relaxed. MD made aware, will continue to monitor. Addendum: 01/29/17 at 1835 by DEVORAH BATRES RN Pulmonary consult completed this AM. Dr Dougherty came to unit and assessed the pt. New orders entered and administered. IV Lorazepam given x 2 with resolution of anxiety. Pt has rested quietly for the afternoon, reports "feels much better", spouse at bedside, Call light in reach, will continue to monitor.
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
[2017-01-29] MEDS: Budesonide 0.5 mg/2 mL Inhalation Solution NEB SCH ×2 (11:35→20:28)
[2017-01-29] MEDS: Levalbuterol 1.25 mg/0.5mL Inhalation Solution NEB SCH ×2 (12:52→18:04)
[2017-01-29 13:01] LABS: BASOPHILS % (AUTO) 0.2 % (0-3); EOSINOPHILS % (AUTO) 0 % (0-5); MONOCYTES % (AUTO) 4.4 % (4-12); Mean Corpuscular Hemoglobin 31.2 pg (27.0-35.0); Mean Corpuscular Volume 89.5 fL (81-100); NEUTROPHILS % (AUTO) 80.4 % (40-74); Platelet Count 239 bil/L (150-400)
[2017-01-29] MEDS: Fluticasone 0.05% 15 Spray/2 Gm 16 Gm Nasal Spray NASAL SCH ×2 (13:29→20:43)
[2017-01-29 13:34] LABS: Magnesium 2.1 mg/dL (1.6-2.6); Phosphorus 2.6 mg/dL (2.5-4.9)
--- NOTE | 2017-01-29 13:41 | NUR ---
Social Work-readiness for discharge/multidisciplinary rounds: data:EMR reviewed. Pt is on day 4 of hospitalization for reactive airway per H&P. Pt is likely medically stable in the next 1-2 days. Pt to have pulmonary consult today. Pt has been up independent in her room. No anticipated discharge needs. SW will continue to follow if needs arise. Assessment:Pt who is independent at baseline. Plan:Pt to discharge home when medically stable via POV. No anticipated discharge needs. SW will continue to follow if needs arise. CHARLES Song
[2017-01-29] MEDS: 0.9% Sodium Chloride 1,000 ML IV SCH (15:03)
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
[2017-01-30] VITALS (14 sets, daily range): BP systolic 144–184; BP diastolic 83–104; PULSE 68–121; RESP 16–20; O2SAT 94–99
[2017-01-30] MEDS: MethylprednisoLONE Sodium Succinate 62.5 mg/mL 2 mL Inj IVPUSH SCH ×4 (02:36→22:43)
[2017-01-30] MEDS: Levalbuterol 1.25 mg/0.5mL Inhalation Solution NEB PRN (05:49)
--- NOTE | 2017-01-30 06:29 | NUR ---
respiratory Pt had neb treatment and IV ativan at HS. pt slept and "felt good" this shift. last BP reading was 184/104 with HR from 60s-70s. pt c/o chest discomfort with breathing. neb tx given by RT and Ativan given per pt's request. will recheck BP in 1hr.
[2017-01-30 06:51] LABS: BASOPHILS % (AUTO) 0.2 % (0-3); EOSINOPHILS % (AUTO) 0.1 % (0-5); MONOCYTES % (AUTO) 2.9 % (4-12); Mean Corpuscular Hemoglobin 30.8 pg (27.0-35.0); Mean Corpuscular Volume 89.1 fL (81-100); NEUTROPHILS % (AUTO) 81.2 % (40-74); Platelet Count 232 bil/L (150-400)
[2017-01-30] MEDS: Budesonide 0.5 mg/2 mL Inhalation Solution NEB SCH ×2 (07:51→19:49)
[2017-01-30] MEDS: Levalbuterol 1.25 mg/0.5mL Inhalation Solution NEB SCH ×4 (07:52→19:49)
[2017-01-30] MEDS: Fluticasone 0.05% 15 Spray/2 Gm 16 Gm Nasal Spray NASAL SCH ×2 (09:10→21:28)
[2017-01-30] MEDS: Pantoprazole 40 mg ER24 Tablet PO SCH ×2 (09:11→21:28)
[2017-01-30] MEDS: Insulin LISPRO 300 Unit/3 mL Inj SUBQ SCH ×4 (09:21→21:28)
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
[2017-01-30] MEDS ORDERED: Adenosine 3 mg/mL 2 mL Inj ONE (14:58)
--- NOTE | 2017-01-30 15:11 | NUR ---
BP/HR/ANXIETY Patient BP down slightly with increase of Verapamil to 60mg, 0800 =175/101 and 1230 = 166/83. Patient remains in sinus tach 90-110 with spikes to 120-140 with activity or post respiratory treatments. Ativan 1mg given for anxiety x2 with good effect. Patient continues to receive 124mg Jordana-Medrol IVP q6, blood sugars 196 and 202. Lungs sound clear and patient on RA and 1L when sleeping saturation mid 90's. Tylenol given for headache with goo efficacy.
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
[2017-01-31] VITALS (13 sets, daily range): BP systolic 135–183; BP diastolic 54–112; PULSE 81–157; RESP 18–38; O2SAT 94–99
[2017-01-31] MEDS: Levalbuterol 1.25 mg/0.5mL Inhalation Solution NEB SCH ×2 (05:35→20:20)
[2017-01-31] MEDS: MethylprednisoLONE Sodium Succinate 62.5 mg/mL 2 mL Inj IVPUSH SCH ×3 (05:52→22:30)
[2017-01-31] MEDS ORDERED: Epinephrine Racemic 2.25% 0.5 mL Inhalation Solution NEB ONE ×2 (05:59→06:34)
[2017-01-31] MEDS ORDERED: Diltiazem 5 mg/mL 5 mL Inj ONE (06:06)
--- NOTE | 2017-01-31 06:22 | ABG ---
DateTimeAnalyzed 06:14:00 -_ pH ____7.635 - 7.350 7.450 pCO2 ___17.8__ -mmHg 35.0 45.0 pO2 392 -mmHg 69.0 116 HCO3- ___19.3__ -mmol/L 22.0 26.0 ABE ____0.8__ -mmol/L -2.0 2.0 tHb ___15.6__ -g/dL 12.0 18.0 O2Hb ___98.2__ -% COHb ____0.8__ -% 0.0 1.5 MetHb ____1.1__ -% 0.4 1.5 sO2 __100.0__ -% FIO2 __100.0__ -% Drawn By AF - Date/Time Notified____ 06:21:00 -_ Oxygen Device 1 NON RE-ALFREDA - Notified By AF - Notified Whom ___Dr. Zheng - B 762 -mmHg tO2 ___22.4__ -Vol% Dexter test _Positive -
[2017-01-31] MEDS ORDERED: Diltiazem 5 mg/mL 5 mL Inj IVPUSH ONE (06:30)
[2017-01-31] MEDS: Diltiazem Inj 125 MG in Dextrose 5% 100 ML IV SCH ×2 (06:46→14:48)
[2017-01-31] MEDS ORDERED: Nitroglycerin 2% 1 Gm Ointment TOPICAL ONE (07:05)
[2017-01-31] MEDS: Budesonide 0.5 mg/2 mL Inhalation Solution NEB SCH ×2 (07:33→20:21)
--- NOTE | 2017-01-31 07:40 | NUR ---
HIGHWAY PAINTER/transfer to CCU Pt slept most of the night w/o respiratory distress. lung sounds are slightly decreased with expiratory, otherwise clear to auscultation. SBA to independent to the BR. Tylenol given for 4/10 headache. Pt reported slight chest pressure when taking breaths after ambulating to the BR. Agreed to have a neb tx. RT gave PRN xopenex tx. Pt started coughing and wheezing after this RT went into the room. Ativan IV given. scheduled 125mg Solumedrol given. outside plant technician called this RN notifying pt's HR in the 160s. RN checked pt and supported her to focus on her breathing. Pt stated that she didn't feel good and went limp. Had to stimulate pt to open her eyes and she did but falls right back to sleep. HIGHWAY PAINTER was called. CCU battery chargerAnn and Dr. Zheng at bedside with RT, Mo and other medical staff (refer to HIGHWAY PAINTER sheet). Meds and Vitals also on the HIGHWAY PAINTER sheet. Diltiazem bolus given and gtt started in the unit before transferring to Room 2013. met pt in room 2013. Report given to CCU RN.
--- NOTE | 2017-01-31 07:41 | NUR ---
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 to the unit patient in respiratory distress with RR in the 40's although spO2 remained at all times in the mid to upper 90's on 15L NRB. Patient also complained of chest pressure with heart rate in the 150's. Dr. Zheng and Dr. Tellez at bedside. Patient given racemic epi nebulizer. To help with anxiety patient was given Valium in a divided dose of 2mg at 0610, followed by 3 mg at 0636 followed by another 5mg at 0645. For heart rate patient was given 6mg of Adenosine with little effect followed by 12mg also with little effect. Patient then given Cardizem bolus in 5mg increments for a total of 15mg and then drip started which was quickly titrated up to 15mg/hr. 1 inch nitro paste applied for continued chest tightness and blood pressures in the 150's-170's/100's. Patient transferred to CCU and report given to Peggy Kaur. See LOOM CONTROL CHAIN BUILDER sheet for timeline of the above events.
[2017-01-31] MEDS: Insulin LISPRO 300 Unit/3 mL Inj SUBQ SCH ×4 (08:00→20:13)
[2017-01-31] MEDS ORDERED: Promethazine Inj 25 MG in Dextrose 5%-Pha MIX 50 ML IV ONE (08:00)
[2017-01-31] MEDS ORDERED: Magnesium Sulf 2 Gm/50mL Water 2 GM in IV Premix 1 EACH IV ONE (08:00)
[2017-01-31] MEDS ORDERED: HYDROmorphone 1 mg/mL Inj IVPUSH ONE (08:00)
[2017-01-31] MEDS: Levalbuterol 1.25 mg/0.5mL Inhalation Solution NEB PRN ×3 (08:24→16:47)
[2017-01-31 08:27] LABS: EOSINOPHILS % (AUTO) 0 % (0-5); Mean Corpuscular Hemoglobin 30.8 pg (27.0-35.0); Mean Corpuscular Volume 86.3 fL (81-100); Platelet Count 286 bil/L (150-400)
[2017-01-31] MEDS: Fluticasone 0.05% 15 Spray/2 Gm 16 Gm Nasal Spray NASAL SCH ×2 (08:30→19:58)
[2017-01-31] MEDS: Pantoprazole 40 mg ER24 Tablet PO SCH ×2 (08:30→20:46)
[2017-01-31] MEDS ORDERED: Adenosine 3 mg/mL 2 mL Inj IVPUSH ONE ×2 (08:45)
[2017-01-31 09:03] LABS: Magnesium 1.9 mg/dL (1.6-2.6)
[2017-01-31] MEDS ORDERED: Famotidine 10 mg/mL 2 mL Inj IVPUSH ONE (09:25)
[2017-01-31 09:48] LABS: BASOPHILS % (AUTO) 0 % (0-3); MONOCYTES % (AUTO) 3 % (4-12); NEUTROPHILS % (AUTO) 85 % (40-74)
[2017-01-31] MEDS: Famotidine Inj 20 MG in IV Premix 1 EACH IV SCH ×2 (10:12→19:52)
[2017-01-31] MEDS: NiCARdipine Inj 25 MG in Dextrose 5% 240 ML IV SCH ×3 (10:15→19:56)
--- NOTE | 2017-01-31 11:37 | DRSVH ---
PROCEDURE: X-RAY CHEST ONE VIEW, PORTABLE ([id number]) INDICATIONS: SHORTNESS OF BREATH TECHNIQUE: One view of the chest was acquired. COMPARISON: [facility], CR, XR CHEST 1VW (PORTABLE), 01/25/2017, 11:44. FINDINGS: Surgical changes and devices: None. Lungs and pleura: No pleural effusions or pneumothorax. Lungs are clear. Mediastinum: Mediastinal contours appear normal. Heart size is normal. Bones and chest wall: No suspicious bony lesions. Overlying soft tissues appear unremarkable. IMPRESSION: No acute cardiopulmonary disease. Dictated by: Mayank BECKWITH Interpreted: Po Aaron MD on 01/31/2017 at 10:32 Approved by: Tyree Aaron M.D. on 01/31/2017 at 11:34
[2017-01-31] MEDS: HYDROmorphone 0.5 mg/0.5 mL iSecure Syringe IVPUSH PRN ×3 (12:21→16:41)
--- NOTE | 2017-01-31 12:37 | DRSVH ---
PROCEDURE: US VENOUS LEG DUPLEX BILATERAL INDICATIONS: SOB TECHNIQUE: Real-time imaging, as well as color and pulse Doppler interrogation, were performed of the deep veins of both legs from the inguinal ligament to the popliteal fossa. COMPARISON: None. FINDINGS: The deep veins are normally compressible, and free of intraluminal thrombus. Color and pu lse Doppler demonstrate normal phasic intravascular flow. There is normal augmentation response to d istal compression maneuver. IMPRESSION: No evidence of deep venous thrombosis. Dictated by: Francisco Cat M.D. on 01/31/2017 at 11:35 Approved by: Francisco Cat M.D. on 01/31/2017 at 11:36
--- NOTE | 2017-01-31 15:05 | DRSVH ---
[facility] [address] [place] [address] Echocardiogram Report Name: BREANNE GRANADO Date: 01/31/2017 Height: 63 in Hospital Exam Location: [facility] Weight: 207 lb Gender: Female BSA: 2.0 m2 : 1975 Age: 42 yrs BP: 149/112 mm Hg Reason For Study: Shortness of breath Ordering Physician: HOSPITALIST [facility] Performed By: Rosina Tuttle Referring Physician: YESENIA BELLAMY Interpretation Summary 1. Normal left ventricular size, wall thickness and systolic function with an estimated EF of 65 to 70% 2. Normal right ventricular size and systolic function 3. No evidence for significant valvular pathology Compared to the previous study, no significant change Procedure: A two-dimensional transthoracic echocardiogram with color flow and Doppler was performed. The study quality was technically adequate. Comparison is made with the echocardiogram of 04/26/2014. The patient was in a tachycardic rhythm during the exam. Left Ventricle: The left ventricle is normal in size. Left ventricular wall thickness is borderline increased. Mildly elevated outflow tract velocities. The ejection fraction is estimated to be 65-70%. Right Ventricle: The right ventricle is normal in size and function. Atria: Both atria are normal in size. Interatrial septum not well visualized. Mitral Valve: The mitral valve is normal in structure and function. There is trace mitral regurgitation. Aortic Valve: Not optimally visualized. Appears to open well. No evidence for aortic valve stenosis. No aortic regurgitation is present. Tricuspid Valve: The tricuspid valve leaflets are thin and pliable. Pulmonary artery pressures cannot be estimated because of the lack of a measurable TR jet velocity. There is a trace or physiologic amount of tricuspid regurgitation. Pulmonic Valve: The pulmonic valve is not well seen, but is grossly normal. There is a trace or physiologic amount of pulmonic regurgitation. Great Vessels: The aortic root is normal size. The ascending aorta is normal in size. The IVC is of normal diameter and collapses greater than 50% with a sniff. This suggests a low right atrial pressure of 3 mm Hg. Pericardium/ Pleura There is no pericardial effusion. There is no pleural effusion. MMode/2D Measurements & Calculations LVIDd: 4.2 cm RA long axis LVOT diam LVIDs: 2.7 cm LA A2 area: 15.2 cm FS: 35.3 % LA A4 area: 18.1 cm RA area asc Aorta IVSd: 1.1 cm LA length (vol): 5.5 cm Diam: 3.4 cm LVPWd: 1.0 cm LA vol: 42.2 ml : 11.4 cm LA vol index RA vol: 26.2 ml RA : 21.5 ml/m2 : 13.3 mm2 LV rendon. diameter/BSA LV sys. diameter/BSA TAPSE: 2.5 cm (cm/m^2): 2.2 (cm/m^2): 1.4 Doppler Measurements & Calculations Ao V2 max MV E max bart MV E/A: 1.2 MV dec time : 186.9 cm/sec : 109.6 cm/sec : 0.18 sec Ao max PG MV A max bart : 14.0 mmHg : 90.0 cm/sec Ao mean PG LVOT Max Bart : 151.2 cm/sec JEREMIAH(I,D): 3.5 cm sev ratio: 0.88 Ao V2 mean LV V1 max PG JEREMIAH indexed to BSA : 138.8 cm/sec (cm^2/m^2): 1.8 Ao V2 VTI: 27.8 cm LV V1 VTI: 24.5 cm JEREMIAH(V,D): 3.2 cm2 Reading Physician:03:04 PM
--- NOTE | 2017-01-31 17:05 | NUR ---
Increased respiratory distress noted at time of transport to CT. Audible upper airway wheezes. Tachypneic and tachycardiac. RR 30s and HR 130s. Increasing substernal chest pressure, rating 5 to 6/10. Cardizem and cardene gtt infusing per ordres. IV ativan and dilaudid administered for patient comfort. Breathing treatment given. Dr Ordoñez at bedside. Plan to hold on CT tonight, reassess need in AM.
--- NOTE | 2017-01-31 17:10 | PROG NOTE ---
[address] [address] PROGRESS NOTE PATIENT: BREANNE GRANADO : 1975 MR#: [id number] ADMIT: 01/25/2017 JOB ID: [id number] DATE: 01/31/2017 PULMONARY CRITICAL CARE PROGRESS NOTE: The patient is a 42-year-old woman with longstanding history of asthma admitted with asthma exacerbation and respiratory distress. The patient was seen and evaluated by resident physician, Dr. Vicky Edwards. Please refer to her separate detailed note for additional information. INTERVAL HISTORY: The patient was transferred to the ICU overnight because of worsening respiratory distress and severe tachycardia up to 160s. She is currently awake, speaking full sentences, still having shortness of breath and coughing in response to any strong smells such as perfumes, etc. REVIEW OF SYSTEMS: Positive for cough, shortness of breath, palpitations. No fevers, chills. PHYSICAL EXAMINATION: Vital signs reviewed. She is afebrile on 1 L oxy mask. General: Appears anxious, slightly tachypneic at rest but in no distress, speaking in full sentences. Chest is clear to auscultation without wheezing or crackles. LABORATORIES: Reviewed. WBC up to 27 from 14. Platelets are 286. Chemistry also reviewed and within normal limits. Procalcitonin 0.03. Cultures: No growth and respiratory viral PCR is negative. Chest x-ray from 01/25 shows clear pulmonary parenchyma as does chest x-ray today. Arterial blood gas from early this morning shows pH of 7.63, pCO2 of 17, pO2 of 392 and bicarb of 19. ASSESSMENT AND RECOMMENDATIONS: 1. Acute asthma exacerbation. 2. Acute respiratory distress. 3. Suspected vocal cord dysfunction. 4. Acute paroxysmal supraventricular tachycardia. RECOMMENDATIONS: This 42-year-old woman with longstanding asthma was transferred to the ICU overnight for respiratory distress. She has been getting maximal medical therapy with levalbuterol, pulse 100. Overnight, she had tachycardia to the 160s and was placed on a diltiazem drip and with that her heart rate is now in the 1-teens to 120. With regards to medications, she is on Solu-Medrol 125 mg IV q.8 h., levalbuterol scheduled q. 4. She has received magnesium during the hospitalization. I would like to evaluate her for other causes of refractory asthma and rule out pulmonary embolus, but she has an IODINE allergy. Because of this, Radiology recommended against a contrast CT. At this point, we are going to get a noncontrast chest CT, echocardiogram to look at right heart function and also a lower extremity duplex. Based on her history and her own admission of symptoms, much of her problem seems to be upper airway. I suspect she has some laryngospasm/vocal cord dysfunction that is also playing a part in addition to asthma. In this case, levalbuterol and steroids may not be doing a lot. Depending on the results of the studies today, I might cut back on these and consider benzyl/low-dose morphine if she has another episode of respiratory distress. We should also consider outpatient speech therapy to help. All of this was discussed with the patient and her in detail and they understand. She is on appropriate DVT prophylaxis. Gastrointestinal prophylaxis is not indicated. CRITICAL CARE TIME: 45 minutes.
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
[2017-02-01] VITALS (13 sets, daily range): BP systolic 127–156; BP diastolic 67–80; PULSE 79–104; RESP 12–24; O2SAT 93–97
[2017-02-01] MEDS: NiCARdipine Inj 25 MG in Dextrose 5% 240 ML IV SCH (00:25)
[2017-02-01] MEDS: HYDROmorphone 0.5 mg/0.5 mL iSecure Syringe IVPUSH PRN (04:09)
[2017-02-01 05:33] LABS: BASOPHILS % (AUTO) 0.2 % (0-3); EOSINOPHILS % (AUTO) 0 % (0-5); MONOCYTES % (AUTO) 3.2 % (4-12); Mean Corpuscular Hemoglobin 30.4 pg (27.0-35.0); Mean Corpuscular Volume 88.3 fL (81-100); NEUTROPHILS % (AUTO) 84.9 % (40-74); Platelet Count 241 bil/L (150-400)
--- NOTE | 2017-02-01 06:03 | NUR ---
Respiratory Status Patient remained stable overnight with no respiratory distress episodes. Ativan given x2 doses, IV dilaudid given x1, diltiazem drip infusing, weaned off nicardipine. HR 80s-100s, BP 120s-130s/60s. 1L O2/NC. Tachypneic and tachycardic when active, up to BSC to void. ABG and labs done this AM. Spouse at bedside. Plan for non-contrast chest CT today.
[2017-02-01] MEDS: MethylprednisoLONE Sodium Succinate 62.5 mg/mL 2 mL Inj IVPUSH SCH (06:23)
[2017-02-01] MEDS: Budesonide 0.5 mg/2 mL Inhalation Solution NEB SCH (08:16)
[2017-02-01] MEDS: Levalbuterol 1.25 mg/0.5mL Inhalation Solution NEB SCH ×3 (08:17→16:24)
[2017-02-01] MEDS: Famotidine Inj 20 MG in IV Premix 1 EACH IV SCH ×2 (09:02→20:49)
[2017-02-01] MEDS: Pantoprazole 40 mg ER24 Tablet PO SCH ×2 (09:03→20:59)
[2017-02-01] MEDS: Fluticasone 0.05% 15 Spray/2 Gm 16 Gm Nasal Spray NASAL SCH ×2 (09:03→20:58)
[2017-02-01] MEDS: Insulin LISPRO 300 Unit/3 mL Inj SUBQ SCH ×4 (09:22→21:45)
--- NOTE | 2017-02-01 10:51 | DRSVH ---
PROCEDURE: CT CHEST WITHOUT CONTRAST ([id number]) INDICATIONS: SOB TECHNIQUE: Noncontrast 5 mm thick sections acquired from the pulmonary apices to the posterior costophrenic angl es. 7 mm thick coronal and sagittal MIP reformats were then acquired. For radiation dose reduction, the following was used: automated exposure control, adjustment of mA and/or kV according to patient size. COMPARISON: [facility], CT, CT CHEST WO CON, 04/13/2015, 15:09. FINDINGS: Image quality: Excellent. Lungs and pleura: No acute air space opacities. Mild patchy bibasilar atelectasis is present. No pl eural effusions or pneumothorax. Central and peripheral airways are patent and normal in caliber. Mediastinum: Heart size is normal. No pericardial effusion. No mediastinal adenopathy by size crit eria. Thoracic aorta and central pulmonary arteries are normal in size. Esophagus is normal in kimberlee lexi. No hiatal hernia. Bones and chest wall: No suspicious bony lesions. No vertebral body compression fractures. No axil kim or supraclavicular adenopathy by size criteria. Thyroid gland is within normal limits on noncon trast imaging. Abdomen: Visualized upper abdominal solid organs and bowel loops appear normal in the absence of con trast. IMPRESSION: 1. No acute process. No explanation for dyspnea. Dictated by: Nilsa Cuadra M.D. on 02/01/2017 at 10:48 Approved by: Nilsa Cuadra M.D. on 02/01/2017 at 10:49
--- NOTE | 2017-02-01 16:18 | NUR ---
P: Resp, hemodynamics, Social I,E: Pt has been on NC O2 1-3l today sats in the high 90's. Pt was complaining of a little anxiousness this am and ativan 1mg worked very well for her. Pt has had clear lung sounds, no wheezing at all, however, on return from CT she did have an episode of coughing/distress that was relieved with deep breathing and relaxation techniques. was concerned about houskeeping using cleaning products to mop the floor but I had already advised housekeeping to use only water at this time. This did seem to relieve some of their concerns. VS have been stable, she has been SR to ST when she is active. She remains on cardizem at 5mg/hr set rate. Pt has since done very well and has been resting in the room. We have been very cautious to not allow anyone who may have strong scents on, to not enter the room. Pt has great support from her and from friends who have visited with her today. She has been resting in the room most of the afternoon but will get up and mobilize in the room this evening.
[2017-02-01] MEDS: MethylprednisoLONE Sodium Succinate 40 mg/mL Inj IVPUSH SCH ×2 (17:20→22:30)
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
--- NOTE | 2017-02-01 19:40 | NUR ---
Nausea/Retching/Tachy Cardiac: Pt reports a chest ache 3/10 that is worse with deep breathing. Diltiazem continues at 5ml/hr. Tele: SR 90-100s up to 140 with retching. Resp: Pt put on remote tele to promote activity and ambulation. Following a breathing treatment by RT. Pt requested to get up to bathroom for the first time to void. Pt up with nurse assistance. Pt was left in care of family while nurse retrieved ativan requested for pt's anxiety. Pt had some dizziness and returned to the bed, she then complained of nausea and began retching, but with no emesis. Pt was given 1mg ativan. During the administration of the ativan while sitting on the edge of the bed, the pt said she felt light headed and appeared to lose consciousness. Pt was laid down and she quickly regained consiousness, but was less alert. The charge nurse was called, vitals and blood sugar were taken. All were normal. Pt reported the chest ache 3/10. The physician was notified and the pt was given PO promethezine for her nausea. Pt quieted some following the promethzine. GI/: Pt having retching and burping, no emesis. promethazine Po given. Neuro: Pt up to BR. pt needs stand by assist for bedside commode for safety. Pt has anxiety at times and has an arm tremor following her bout of retching.
[2017-02-01] MEDS: Diltiazem Inj 125 MG in Dextrose 5% 100 ML IV SCH (21:45)
[2017-02-02] VITALS (11 sets, daily range): BP systolic 139–151; BP diastolic 80–88; PULSE 70–88; RESP 14–20; O2SAT 91–99
[2017-02-02] MEDS: MethylprednisoLONE Sodium Succinate 40 mg/mL Inj IVPUSH SCH ×2 (00:28→09:28)
[2017-02-02] MEDS: Levalbuterol 1.25 mg/0.5mL Inhalation Solution NEB PRN ×2 (04:17→12:56)
[2017-02-02 05:15] LABS: BASOPHILS % (AUTO) 0.2 % (0-3); EOSINOPHILS % (AUTO) 0 % (0-5); Mean Corpuscular Volume 88.5 fL (81-100); NEUTROPHILS % (AUTO) 85.8 % (40-74); Platelet Count 225 bil/L (150-400)
--- NOTE | 2017-02-02 06:31 | NUR ---
Nausea/Pain Patient c/o nausea and abd pain this shift, appetite changes but able to keep down PO meds and a few crackers after taking Phenergan PO, no retching or dry heaving, up to [facility] x3, no c/o dizziness after getting up this shift, unsteady on feet and needs 1 person SBA, , resting this AM and no needs at this time uneventful shift, will continue to monitor. Addendum: 02/02/17 at 0637 by NA HEALY RN Amended: Links added.
[2017-02-02] MEDS: Famotidine Inj 20 MG in IV Premix 1 EACH IV SCH (09:28)
[2017-02-02] MEDS: Pantoprazole 40 mg ER24 Tablet PO SCH ×2 (09:28→20:23)
[2017-02-02] MEDS: Fluticasone 0.05% 15 Spray/2 Gm 16 Gm Nasal Spray NASAL SCH ×2 (09:29→20:22)
[2017-02-02] MEDS: Insulin LISPRO 300 Unit/3 mL Inj SUBQ SCH ×4 (09:29→21:52)
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
--- NOTE | 2017-02-02 13:21 | NUR ---
NUTRITION ASSESSMENT: ASSESS: Pt is 42yo F admitted for asthma/reactive airway disease. Respiratory status has been improving. It is suspected that she has some laryngospasm/vocal cord dysfunction. Overall she has been tolerating PO well at ~75% of meals. She has been experiencing some nausea/retching but she was able to tolerate 100% of her breakfast this am. PMHX: Asthma, hypothyroid, thyroiditis, GERD, SVT, anxiety, HTN, CVA, hiatal hernia LABS: Reviewed. Glu 169, ALT 39, Alb 3.4 MEDS: Reviewed. Insulin GI: BMx1 02/02 SKIN: no major issues CURRENT WTS: 96.4kg, BMI 37.1kg/m2, admit wt 93.3kg, IBW 53.4kg DIET: HH, PO ~75% EST. NEEDS: BMI Kcals: 1930-2125kcal/day (20-22kcal/kg) Pro: 65-80g/day (1.2-1.5g/kg IBW) NUTRITION DIAGNOSIS: 1.) No nutrition diagnosis at this time NUTRITION INTERVENTION: 1.) Continue current diet and supplements of Ensure BID. PO intake is adequate for needs MONITOR / EVAL: PO, wt, GI, labs, POC, nutrition status. Will continue to monitor per low nutrition risk guidelines
--- NOTE | 2017-02-02 13:25 | NUR ---
Transfer to [facility] Pt transferred to [facility] at 13:30, report called to BRANDON Montes. Cardiac: Pt reports very mild chest pain 2/10 localized in the center of her chest, says, I think it is from all the coughing, it feels like a pulled muscle". Tele: SR 80-90, up to 140 with activity. Pt got dizzy again when getting up to bathroom agian. Pt had more dry heaves which resolved when she got back to bed. Resp: Pt denies SOB at rest. SPo2 96% on RA. GI/: Pt reports mild nausea that has been consistant. Pt having retching and burping, no emesis after getting up to BR. promethazine Po given this AM. Pt has had diarrhea x2 prior to transfer to [facility]. Neuro: A&Ox3, ativan given for anxiety. Pt reports she gets very emotional when she is on steroids. Pt needs stand by assist for bedside commode for safety
--- NOTE | 2017-02-02 16:50 | NUR ---
Social Work: Continued Discharge Planning/Multidisciplinary Rounds D: Pt discussed in multidisciplinary rounds; the patient is not medically stable for discharge at this time. PT has worked with the patient and is recommending HH services, patient ambulated 100 feet. No CM order placed at this time to coordinate home health services. TRUCK DRIVER SUPERVISOR will follow up with the patient once these are placed. A: Pt lives at home with her spouse and is I at baseline P: TRUCK DRIVER SUPERVISOR to follow up with provider about PT recommendation for HH services at discharge. TRUCK DRIVER SUPERVISOR to follow up with pt re: recommendations if CM order placed to coordinate HH Services. TRUCK DRIVER SUPERVISOR to continue to follow. CHARLES Juares
--- NOTE | 2017-02-02 17:09 | NUR ---
MOC receipt Pt arrived to [facility] at 1330, pt ambulates w/o assist slowly to bed. Pt oriented to room and call light, pt comfortable in new bed and will call w/ any needs.
--- NOTE | 2017-02-02 17:10 | NUR ---
Ambulation Pt worked w/ PT and did very well, pt is motivated to get better, will go on another walk after dinner.
[2017-02-03 01:19] VITALS: BP 133/76; PULSE 78; RESP 17; O2SAT 92
--- NOTE | 2017-02-03 05:46 | NUR ---
Breathing/Ambulation Received pt. in bed, resting, calm, pleasant and breathing comfortably, no s/s of respiratory distress noted, denies SOB, Oxygen at 90-94% RA, compliant with use of incentive spirometry, encourage deep breath and coughing, uses FWW for ambulation, SBA to and from the BR, family at beside, uses call light appropriately, hourly checks, pt. slept most of the night, all needs attended, will continue to monitor.
[2017-02-03 06:32] VITALS: BP 150/91; PULSE 86; RESP 19; O2SAT 94
[2017-02-03] MEDS: Insulin LISPRO 300 Unit/3 mL Inj SUBQ SCH (08:00)
[2017-02-03] MEDS: Fluticasone 0.05% 15 Spray/2 Gm 16 Gm Nasal Spray NASAL SCH (09:03)
[2017-02-03] MEDS: Pantoprazole 40 mg ER24 Tablet PO SCH (09:03)
[2017-02-03 09:07] LABS: BASOPHILS % (AUTO) 0.4 % (0-3); EOSINOPHILS % (AUTO) 0.3 % (0-5); MONOCYTES % (AUTO) 6.8 % (4-12); Mean Corpuscular Hemoglobin 31.1 pg (27.0-35.0); NEUTROPHILS % (AUTO) 71.9 % (40-74); Platelet Count 98 bil/L (150-400)
[2017-02-03] MEDS ORDERED: Diltiazem CD 180 mg ER24 Capsule PO SCH (10:17)
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
[2017-02-03] MEDS ORDERED: DILT180C66 PO (11:05)
[2017-02-03] MEDS ORDERED: LABE100T4 PO (11:05)
[2017-02-03 12:00] VITALS: BP 152/83; PULSE 90; RESP 18; O2SAT 96
--- NOTE | 2017-02-03 13:11 | NUR ---
Discharge Pt d/c at 1230 via w/ staff and . Time taken to reinforce teaching regarding bp meds, as well as to go over any questions regarding d/c plan. Pt and felt comfortable and had no concerns regarding d/c plan to f/u on tuesday at the residency clinic. It was a pleasure to take care of this patient.
--- NOTE | 2017-02-03 15:13 | NUR ---
Social Work: Discharge Data & Assessment: EMR reviewed. Patient is on day 9 of hospitalization for reactive airway disease per H&P. Patient was discussed in morning rounds. Patient has been deemed medically stable for discharge per MD. Patient will discharge home with spouse. Transportation home will be provided by spouse. Patient had no additional needs at this time of discharge. Plan: Patient will discharge home with spouse. Transportation will be provided by spouse. Patient has no additional needs at this time. CHARLES Espinosa
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
== END 2017-02-03 12:30 | disposition home or self-care (01) | DRG 202 ==
LOC: EDBD 11:09 → SED 11:09 → MPC 16:13 → CCU 01-31 06:54 → PCC 02-01 12:56 → MOC 02-02 13:55
PROVIDERS: ADMIT Specialist; ATTEND Specialist
PROC: 4A033R1 Measurement of Arterial Saturation, Peripheral, Percutaneous Approach (ICD-10-PCS; principal; 2017-01-25)
DX: J45.901 Unspecified asthma with (acute) exacerbation (principal); E87.2 Acidosis; I47.1 Supraventricular tachycardia; E03.9 Hypothyroidism, unspecified; I10 Essential (primary) hypertension; D72.829 Elevated white blood cell count, unspecified; G43.909 Migraine, unspecified, not intractable, without status migrainosus; K21.9 Gastro-esophageal reflux disease without esophagitis; R73.9 Hyperglycemia, unspecified; F41.9 Anxiety disorder, unspecified; J38.3 Other diseases of vocal cords; J38.5 Laryngeal spasm